=== PATIENT | male | born 1955 | race Caucasian/White ===

== ENCOUNTER 2020-08-09 10:54 | Outpatient (CLI) | payer MEDICARE, BC | END 2020-08-09 23:59 | disposition home or self-care (01) | LOC: VAS 10:54 | PROVIDERS: ATTEND Specialist | DX: M71.21 Synovial cyst of popliteal space [Baker], right knee (principal) | CPT/HCPCS: 93970 ==

== ENCOUNTER 2021-06-13 09:44 | Emergency (ER) | payer MEDICARE, BC ==
[~2021-06-13] VITALS: Ht 167.6 cm; Wt 77.3 kg
[2021-06-13 09:57] VITALS: BP 140/86
[2021-06-13] MEDS ORDERED: ALBU6.7H9 INH (10:47)
== END 2021-06-13 12:13 | disposition home or self-care (01) ==
LOC: ER 09:45
DX: U07.1 COVID-19 (principal); J40 Bronchitis, not specified as acute or chronic; Z79.899 Other long term (current) drug therapy
CPT/HCPCS: 71045; 99283